=== PATIENT | male | born 1990 | race Caucasian/White ===

== ENCOUNTER 2018-03-15 03:40 | Inpatient (IN) | payer SELFPAY ==
[2018-03-15] VITALS (8 sets, daily range): BP systolic 119–138; BP diastolic 54–70; PULSE 72–86; RESP 14–24; TEMP 97.6–98.3; O2SAT 96–100
[~2018-03-15] VITALS: Ht 167.6 cm; Wt 80.9 kg
[2018-03-15] MEDS ORDERED: IOHEXOL 350 MG/ML 10 ML VIAL (for RAD DIAG) IVCONTRAST ONE (03:41)
[2018-03-15] MEDS ORDERED: MORPHINE SULFATE 4 MG/ML INJ ONE (03:42)
[2018-03-15] MEDS ORDERED: DIPHTH/TETANUS/ACEL PERTUSSIS (BOOSTER) 0.5 ML VIAL/PFS IM ONE (03:44)
[2018-03-15 04:34] LABS: AUTOMATED NEUTROPHIL # 8.4 TH/MM3 (1.8-7.7); BASOPHIL % 0.2 % (0.0-2.0); EOSINOPHIL # 0.1 TH/MM3 (0-0.4); EOSINOPHIL % 0.5 % (0.0-4.0); HEMATOCRIT 42.1 % (39.0-51.0); LYMPH % 33.6 % (9.0-44.0); LYMPHOCYTE # 4.7 TH/MM3 (1.0-4.8); MEAN CELL VOLUME 86.6 FL (80.0-100.0); MEAN CORPUSCULAR HEMOGLOBIN 28.8 PG (27.0-34.0); MEAN CORPUSCULAR HGB CONC 33.3 % (32.0-36.0); MEAN PLATELET VOLUME 9.2 FL (7.0-11.0); MONO % 5.6 % (0.0-8.0); MONOCYTE # 0.8 TH/MM3 (0-0.9); NEUT % 60.1 % (16.0-70.0); PLATELET COUNT 251 TH/MM3 (150-450); RED BLOOD COUNT 4.86 MIL/MM3 (4.50-5.90); RED CELL DISTRIBUTION WIDTH 13.9 % (11.6-17.2); WHITE BLOOD COUNT 13.9 TH/MM3 (4.0-11.0)
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
[2018-03-15] MEDS ORDERED: MORPHINE SULFATE 4 MG/ML INJ IV PUSH ONE (04:45)
[2018-03-15 04:46] LABS: INTERNATIONAL NORMALIZED RATIO 1.1 RATIO; PROTHROMBIN TIME - PATIENT 10.9 SEC (9.8-11.6)
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
[2018-03-15] MEDS ORDERED: PIPERACIL-TAZO 3.375 GM PREMIX 50 ML IV ONE (06:45)
[2018-03-15] MEDS ORDERED: ceFAZolin 2 GM PREMIX 50 ML ONE (07:53)
[2018-03-15] MEDS ORDERED: metroNIDAZOLE 500 MG INJ 100 ML IV ONE (07:53)
[2018-03-15] MEDS ORDERED: ONDANSETRON HCL 4 MG/2 ML VIAL IV PUSH PRN (08:15)
[2018-03-15] MEDS ORDERED: ACETAMINOPHEN/HYDROcodone 325 MG/5 MG TAB PO PRN (08:15)
[2018-03-15] MEDS ORDERED: SODIUM CHLORIDE 0.9% FLUSH 10 ML FLUSH IV FLUSH PRN (08:15)
[2018-03-15] MEDS ORDERED: ENALAPRILAT 1.25 MG/ML VIAL IV PUSH PRN (08:15)
[2018-03-15] MEDS ORDERED: MORPHINE SULFATE 2 MG/ML SYRINGE IV PUSH PRN (08:15)
[2018-03-15] MEDS ORDERED: ACETAMINOPHEN 1000 MG/100 ML 100 ML IV ONE (08:34)
[2018-03-15] MEDS: MAGNESIUM HYDROXIDE SUSP 30 ML CUP PO SCH ×2 (09:00→19:53)
[2018-03-15] MEDS: DOCUSATE SODIUM 100 MG CAP PO SCH ×2 (09:00→19:53)
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
[2018-03-15] MEDS ORDERED: NALOXONE HCL 0.4 MG/ML AMP IV PUSH PRN (09:30)
[2018-03-15] MEDS ORDERED: DO NOT ADM ANY ANTICOAGULANT DRUGS PRN (09:38)
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
[2018-03-15] MEDS: PANTOPRAZOLE SODIUM 40 MG VIAL IVP SCH (10:00)
[2018-03-15] MEDS: SODIUM CHLOR 0.9% 1000 ML INJ 1,000 ML IV SCH ×2 (10:00→17:30)
[2018-03-15] MEDS: MORPHINE SULFATE 30 MG/30 ML PCA IV SCH ×2 (10:02→19:52)
[2018-03-15] MEDS ORDERED: DOCU1CAP39 PO (10:25)
[2018-03-15] MEDS ORDERED: MAGN30S PO (10:25)
[2018-03-15] MEDS ORDERED: NEOSTIGMINE 5 MG/5 ML SYRINGE IV PUSH ONE (12:00)
[2018-03-15] MEDS ORDERED: GLYCOPYRROLATE 1 MG/5 ML SYRINGE IV PUSH ONE (12:00)
[2018-03-15] MEDS ORDERED: ONDANSETRON HCL 4 MG/2 ML VIAL IV ONE (12:00)
[2018-03-15] MEDS ORDERED: LACTATED RINGER'S 1000 ML INJ 2,000 ML IV ONE (12:00)
[2018-03-15] MEDS ORDERED: PROPOFOL 200 MG/20 ML AMP IV ONE (12:00)
[2018-03-15] MEDS ORDERED: ROCURONIUM INJ 50 MG/5 ML SYRINGE IV PUSH ONE (12:00)
[2018-03-15] MEDS ORDERED: DEXAMETHASONE SOD PHOS 4 MG/ML VIAL IV ONE (12:00)
[2018-03-15] MEDS: PCA - TOTAL MG MORPHINE DELIVERED PER SHIFT SCH ×2 (14:00→22:00)
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
--- NOTE | 2018-03-15 18:28 | MP ---
cc: Miguel Bland MD DATE OF OPERATION: 03/15/2018 DATE OF PROCEDURE: 03/15/2018 PREOPERATIVE DIAGNOSES: Bowel injury and bladder injury. POSTOPERATIVE DIAGNOSIS: Bladder injury. PROCEDURE PERFORMED: Diagnostic laparoscopy, repair of bladder injury. The urological portion of the operation will be dictated by Dr. Montoya. SURGEON: Miguel Bland MD ANESTHESIA: General endotracheal anesthesia. ESTIMATED BLOOD LOSS: Scant. FINDINGS: Free fluid within the abdomen. Hemorrhagic rupture to the dome of the bladder. The small bowel was inspected from the ligament of Treitz to the ileocecal valve. No evidence of injury. The colon was inspected. No evidence of injury. No evidence of injury to the stomach as well. The liver and spleen were without injury. SPECIMENS: None. COMPLICATIONS: None. DESCRIPTION OF PROCEDURE: The patient was brought to the operating room and placed on the operating table in supine position. Bilateral sequential inflation devices placed on the lower extremities. General anesthesia instituted. Antibiotics initiated. The abdomen was prepped and draped sterilely. A point in the left upper quadrant was identified. A skin incision was made. A 5 mm Optiview port placed under direct vision. Under direct vision, a 5 mm right upper quadrant, a 12 mm right lower quadrant, and a 5 mm left lower quadrant port were placed. The patient's abdominal cavity was inspected. Findings were as above. The abdominal cavity was washed out with saline, copious amount, and the bladder repair was performed and will be dictated by Dr. Montoya. Prior to releasing the CO2, the fascia at the 12 mm port site was approximated with 0 Vicryl using a fascial closure device. All skin incisions were closed with 4-0 Monocryl. The abdominal wall was cleaned and a sterile dressing placed. The patient was awakened and taken to the recovery room. MD CARLOS Rabago/EVA , 05:48 PM , 06:26 PM
[2018-03-16 00:15] VITALS: BP 103/51; PULSE 70; RESP 16; TEMP 97.6; O2SAT 98
[2018-03-16] MEDS: SODIUM CHLOR 0.9% 1000 ML INJ 1,000 ML IV SCH (03:05)
[2018-03-16 04:25] VITALS: BP 113/66; PULSE 52; RESP 16; TEMP 97.1; O2SAT 99
[2018-03-16] MEDS: PCA - TOTAL MG MORPHINE DELIVERED PER SHIFT SCH ×3 (06:00→23:03)
[2018-03-16 06:16] LABS: AUTOMATED NEUTROPHIL # 6.6 TH/MM3 (1.8-7.7); BASOPHIL % 0.1 % (0.0-2.0); EOSINOPHIL % 0.2 % (0.0-4.0); HEMATOCRIT 34.4 % (39.0-51.0); HEMOGLOBIN 11.7 GM/DL (13.0-17.0); LYMPH % 15.1 % (9.0-44.0); LYMPHOCYTE # 1.3 TH/MM3 (1.0-4.8); MEAN CELL VOLUME 85.7 FL (80.0-100.0); MEAN CORPUSCULAR HEMOGLOBIN 29.2 PG (27.0-34.0); MEAN CORPUSCULAR HGB CONC 34.1 % (32.0-36.0); MEAN PLATELET VOLUME 9.3 FL (7.0-11.0); MONO % 9.7 % (0.0-8.0); MONOCYTE # 0.9 TH/MM3 (0-0.9); NEUT % 74.9 % (16.0-70.0); PLATELET COUNT 190 TH/MM3 (150-450); RED BLOOD COUNT 4.02 MIL/MM3 (4.50-5.90); WHITE BLOOD COUNT 8.8 TH/MM3 (4.0-11.0)
[2018-03-16] MEDS: MORPHINE SULFATE 30 MG/30 ML PCA IV SCH ×2 (06:29→14:36)
[2018-03-16 06:45] LABS: ALBUMIN 3.4 GM/DL (3.4-5.0); AST (GOT) 21 U/L (15-37); BICARBONATE 27.8 MEQ/L (21.0-32.0); BLOOD UREA NITROGEN 8 MG/DL (7-18); CALCIUM 8.2 MG/DL (8.5-10.1); CHLORIDE 104 MEQ/L (98-107); CREATININE 0.86 MG/DL (0.60-1.30); GLOMERULAR FILTRATION RATE 106 ML/MIN (>89); GLUCOSE,RANDOM 105 MG/DL (74-106); SODIUM (NA) 140 MEQ/L (136-145)
[2018-03-16 06:46] LABS: ALT (GPT) 32 U/L (12-78)
[2018-03-16 06:48] LABS: ALKALINE PHOSPHATASE 47 U/L (45-117); TOTAL BILIRUBIN ADULT 0.6 MG/DL (0.2-1.0); TOTAL PROTEIN 6.9 GM/DL (6.4-8.2)
[2018-03-16 08:00] VITALS: BP 117/60; PULSE 70; RESP 17; TEMP 97.9; O2SAT 96
[2018-03-16] MEDS: MAGNESIUM HYDROXIDE SUSP 30 ML CUP PO SCH ×2 (09:00→23:02)
[2018-03-16] MEDS: DOCUSATE SODIUM 100 MG CAP PO SCH ×2 (09:00→23:02)
[2018-03-16] MEDS: PANTOPRAZOLE SODIUM 40 MG VIAL IVP SCH (09:00)
[2018-03-16 12:00] VITALS: BP 140/66; PULSE 73; RESP 17; TEMP 97.9; O2SAT 95
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
[2018-03-16] MEDS ORDERED: ENOXAPARIN SODIUM 30 MG/0.3 ML SYRINGE SQ SCH (14:00)
[2018-03-16 16:00] VITALS: BP 105/57; PULSE 73; RESP 17; TEMP 97.5; O2SAT 97
[2018-03-16 19:55] VITALS: BP 122/57; PULSE 93; RESP 17; TEMP 97.3; O2SAT 95
[2018-03-17 00:19] VITALS: BP 101/53; PULSE 83; RESP 17; TEMP 97.6; O2SAT 97
[2018-03-17] MEDS: ENOXAPARIN SODIUM 30 MG/0.3 ML SYRINGE SQ SCH ×2 (00:35→12:28)
[2018-03-17] MEDS: MORPHINE SULFATE 30 MG/30 ML PCA IV SCH (05:54)
[2018-03-17] MEDS: PCA - TOTAL MG MORPHINE DELIVERED PER SHIFT SCH (05:55)
[2018-03-17 05:56] VITALS: BP 112/54; PULSE 73; RESP 17; TEMP 98.9; O2SAT 96
[2018-03-17 07:08] LABS: AUTOMATED NEUTROPHIL # 4.2 TH/MM3 (1.8-7.7); BASOPHIL % 0.3 % (0.0-2.0); EOSINOPHIL # 0.1 TH/MM3 (0-0.4); EOSINOPHIL % 1.4 % (0.0-4.0); HEMATOCRIT 34.3 % (39.0-51.0); HEMOGLOBIN 11.7 GM/DL (13.0-17.0); LYMPH % 27.7 % (9.0-44.0); LYMPHOCYTE # 1.9 TH/MM3 (1.0-4.8); MEAN CELL VOLUME 85.5 FL (80.0-100.0); MEAN CORPUSCULAR HEMOGLOBIN 29.2 PG (27.0-34.0); MEAN CORPUSCULAR HGB CONC 34.2 % (32.0-36.0); MEAN PLATELET VOLUME 9.1 FL (7.0-11.0); MONO % 9.2 % (0.0-8.0); MONOCYTE # 0.6 TH/MM3 (0-0.9); NEUT % 61.4 % (16.0-70.0); PLATELET COUNT 176 TH/MM3 (150-450); RED BLOOD COUNT 4.01 MIL/MM3 (4.50-5.90); RED CELL DISTRIBUTION WIDTH 13.8 % (11.6-17.2); WHITE BLOOD COUNT 6.8 TH/MM3 (4.0-11.0)
[2018-03-17 07:25] LABS: ALBUMIN 3.2 GM/DL (3.4-5.0); ALT (GPT) 30 U/L (12-78); AST (GOT) 26 U/L (15-37); BICARBONATE 32.6 MEQ/L (21.0-32.0); BLOOD UREA NITROGEN 9 MG/DL (7-18); CALCIUM 8.2 MG/DL (8.5-10.1); CHLORIDE 102 MEQ/L (98-107); CREATININE 0.76 MG/DL (0.60-1.30); GLOMERULAR FILTRATION RATE 122 ML/MIN (>89); GLUCOSE,RANDOM 99 MG/DL (74-106); SODIUM (NA) 140 MEQ/L (136-145)
[2018-03-17 07:27] LABS: ALKALINE PHOSPHATASE 49 U/L (45-117); TOTAL BILIRUBIN ADULT 0.4 MG/DL (0.2-1.0); TOTAL PROTEIN 6.8 GM/DL (6.4-8.2)
[2018-03-17 08:00] VITALS: BP 108/58; PULSE 75; RESP 18; TEMP 98.2; O2SAT 96
[2018-03-17] MEDS: DOCUSATE SODIUM 100 MG CAP PO SCH (08:16)
[2018-03-17] MEDS: MAGNESIUM HYDROXIDE SUSP 30 ML CUP PO SCH (08:16)
[2018-03-17] MEDS: PANTOPRAZOLE SODIUM 40 MG VIAL IVP SCH (08:17)
[2018-03-17] MEDS: ACETAMINOPHEN/HYDROcodone 325 MG/5 MG TAB PO PRN ×2 (08:18→12:28)
[2018-03-17 11:53] VITALS: BP 130/77; PULSE 74; RESP 18; TEMP 98.2; O2SAT 97
[2018-03-17] MEDS ORDERED: HYDR-3516 PO (12:39)
--- NOTE | 2018-03-17 12:42 | HHI.FF ---
Face to Face Verification Diagnosis: (1) Pneumoperitoneum (2) Bladder injury (3) Blunt abdominal trauma Home Health Nursing Order: Medical education Signs/symptoms of disease process Nursing assessment with vital signs Ortega catheter maintenance I have seen patient Jake Akins on 03/17/18. My clinical findings support the need for the requested home health care services because: Ltd mobility - disease progression Limited ability to care for self High risk of falls Infection w/ risk of complications I certify that my clinical findings support that this patient is homebound because: Post-op weakness Unsteady gait/balance Unsafe to leave home unassisted Fvx-yvbiymlvai-aednrlgm bed/chair Unable to use public transportation Nirmala Betts Mar 17, 2018 12:42
[2018-03-17] MEDS ORDERED: WALKER WHEELS/F1 MIS (13:53)
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
== END 2018-03-17 15:40 | disposition home health service (06) | DRG 345 ==
LOC: NEPE 03:40 → EDBD 07:05 → NEDA 07:05 → N06A 11:19
PROVIDERS: ADMIT Surgery; ATTEND Surgery
PROC: 0WJJ0ZZ Inspection of Pelvic Cavity, Open Approach (ICD-10-PCS; 2018-03-15)
PROC: 0TQB4ZZ Repair Bladder, Percutaneous Endoscopic Approach (ICD-10-PCS; principal; 2018-03-15 07:49)
DX: K66.8 Other specified disorders of peritoneum (principal); S37.20XA Unspecified injury of bladder, initial encounter; N32.89 Other specified disorders of bladder; R40.2410 Glasgow coma scale score 13-15, unspecified time; V43.52XA Car driver injured in collision with other type car in traffic accident, initial encounter; Y92.410 Unspecified street and highway as the place of occurrence of the external cause; Z23 Encounter for immunization
CPT/HCPCS: 70450; 71045; 71260; 72125; 72129; 72132; 72170; 74177; 80048; 80053; 80307; 85025; 85610; 85730; 86850; 86900; 86901; 90471; 90715; 94150; 96365; 96375; 99291; C9113; G0390; J0131; J0690; J1100; J1650; J2270; J2405; J2543; J2710; J3010; J7030; J7120; Q9967

== ENCOUNTER 2018-04-03 16:36 | Emergency (ER) | payer SELFPAY ==
[~2018-04-03] VITALS: Ht 167.6 cm; Wt 80.0 kg
[~2018-04-03 16:36] MED LIST: DOCU1CAP39 PO; HYDR-3516 PO; MAGN30S PO; WALKER WHEELS/F1 MIS
[2018-04-03 16:45] VITALS: BP 128/83; PULSE 58; RESP 17; TEMP 98; O2SAT 100
[2018-04-03 17:13] VITALS: BP 133/72; PULSE 61; RESP 18; O2SAT 98
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
--- NOTE | 2018-04-03 18:51 | RADRPT ---
EXAM DATE/TIME: 04/03/2018 18:30 [place] COMPARISON: No previous studies available for comparison. INDICATIONS : Evaluate for perfortion post bladder repair 3 weeks ago 1.1 minutes 8 CONTRAST: 220 cc Cystografin MEDICAL HISTORY : None. SURGICAL HISTORY : Bladder repair ENCOUNTER: Initial ACUITY: 3 weeks PAIN SCORE: 3/10 LOCATION: Bladder FINDINGS: Preliminary film is unremarkable. No abnormal calcifications are identified. Following placement of a Ortega catheter the bladder was filled in retrograde fashion to adequate dist ention and post images in multiple obliquities were obtained. There is no leakage of contrast on filling or emptying of the bladder. CONCLUSION: Unremarkable cystogram. Nhan Salinas MD on April 03, 2018 at 18:48 Board Certified Radiologist. This report was verified electronically.
== END 2018-04-03 20:36 | disposition home or self-care (01) ==
LOC: NEPC 16:36
DX: T83.9XXA Unspecified complication of genitourinary prosthetic device, implant and graft, initial encounter (principal)
CPT/HCPCS: 51702; 74430